=== PATIENT | female | born 1955 | race Caucasian/White ===

== ENCOUNTER 2018-04-25 12:34 | Day surgery (SDC) | payer OTHER ==
[2018-04-25] MEDS ORDERED: PROPOFOL 20 ML (14:32)
== END 2018-04-25 15:11 | disposition home or self-care (01) ==
LOC: GIL 12:34
DX: Z12.11 Encounter for screening for malignant neoplasm of colon (principal); K64.8 Other hemorrhoids; K64.4 Residual hemorrhoidal skin tags; E78.5 Hyperlipidemia, unspecified
CPT/HCPCS: 45378